=== PATIENT | male | born 1985 | race Caucasian/White ===

== ENCOUNTER 2017-10-15 11:29 | Day surgery (SDC) | payer OTHER ==
[~2017-10-15 11:29] MED LIST: Lactated Ringers 1,000 ML IV SCH
[2017-10-15] MEDS ORDERED: Lidocaine 2% 5 ML SDV ONE (11:45)
[2017-10-15] MEDS ORDERED: Midazolam 1 MG/ML 2 ML SDV ONE (11:46)
[2017-10-15] MEDS ORDERED: Propofol 200 MG/20 ML SDV ONE ×3 (11:46→12:53)
--- NOTE | 2017-10-15 12:27 | PCM.PREANE ---
Preanesthetic Assessment - Anesthesia/Transfusion/Family Hx Anesthesia History: Prior Anesthesia Without Reaction Family History of Anesthesia Reaction: No Transfusion History: No Prior Transfusion(s) Intubation History: Unknown - Review of Systems General: No Symptoms Pulmonary: No Symptoms Cardiovascular: No Symptoms Gastrointestinal: Difficulty Swallowing Neurological: No Symptoms Other: Reports: None - Physical Assessment O2 Sat by Pulse Oximetry: 96 Respiratory Rate: 16 Vital Signs: Last Vital Signs Temp 37.1 C 10/15/17 12:07 Pulse 110 H 10/15/17 12:07 Resp 16 10/15/17 12:07 BP 115/79 10/15/17 12:07 Pulse Ox 96 10/15/17 12:07 Height: 1.68 m Weight: 72.575 kg ASA Class: 2 Mental Status: Alert & Oriented x3 Airway Class: Mallampati = 2 Dentition: Reports: Normal Dentition Thyro-Mental Finger Breadths: 2 Mouth Opening Finger Breadths: 2 ROM/Head Extension: Full Lungs: Clear to Auscultation, Normal Respiratory Effort Cardiovascular: Regular Rate, Regular Rhythm - Allergies Allergies/Adverse Reactions: Allergies Allergy/AdvReac Type Severity Reaction Status Date / Time Sulfa (Sulfonamide Allergy Cannot Verified 10/12/17 13:13 Antibiotics) Remember zolpidem [From Ambien] Allergy "I do Verified 10/12/17 13:13 things" - Blood Blood Available: No - Anesthesia Plan Pre-Op Medication Ordered: None - Acknowledgements Anesthesia Type Planned: MAC Pt an Appropriate Candidate for the Planned Anesthesia: Yes Alternatives and Risks of Anesthesia Discussed w Pt/Guardian: Yes Pt/Guardian Understands and Agrees with Anesthesia Plan: Yes PreAnesthesia Questionnaire HEENT History: Reports: None Cardiovascular History: Reports: Other (See Below) (h/o HTN and high cholesterol , present status unknown) Respiratory History: Reports: Sleep Apnea (does not use CPAP mashine) Gastrointestinal History: Reports: GERD, Other (See Below) Other Gastrointestinal History: dysphagia, fatty liver Musculoskeletal History: Reports: Other (See Below) Other Musculoskeletal History: pain to hands and wrists Psychiatric History: Reports: ADHD, Anxiety, Depression, PTSD - Past Surgical History Head Surgeries/Procedures: Reports: None HEENT Surgical History: Reports: Adenoidectomy, Naso-Sinus Surgery (septoplasty) , Tonsillectomy - SUBSTANCE USE Smoking Status *Q: Never Smoker Recreational Drug Use History: No - HOME MEDS Home Medications: Home Meds Cetirizine HCl [Allergy Relief] 10 mg PO DAILY 10/12/17 [History] Dextroamphetamine Sulfate [Dextroamphetamine Sulfate ER] 10 mg PO DAILY [History] Fluticasone Propionate [Flonase Allergy Relief] 1 spray NASBOTH DAILY 10/12/17 [ History] Pantoprazole Sodium 40 mg PO DAILY 10/12/17 [History] traZODone HCl [Trazodone HCl] 100 mg PO BEDTIME 10/12/17 [History] - CURRENT (IN HOUSE) MEDS Current Meds: Current Medications Lactated Ringer's (Ringers, Lactated) 1,000 mls @ 125 mls/hr IV ASDIRECTED OLI Last Admin: 10/15/17 12:10 Dose: 125 mls/hr Lactated Ringer's (Ringers, Lactated) 1,000 mls @ 125 mls/hr IV ASDIRECTED OLI Discontinued Medications Lidocaine (Xylocaine-Mpf 2%) Confirm Administered Dose 5 ml .ROUTE .STK-MED ONE Stop: 10/15/17 11:46 Midazolam HCl (Versed 1 Mg/Ml) Confirm Administered Dose 2 mg .ROUTE .STK-MED ONE Stop: 10/15/17 11:47 Propofol (Diprivan 20 Ml) Confirm Administered Dose 400 mg .ROUTE .STK-MED ONE Stop: 10/15/17 11:47 Propofol (Diprivan 20 Ml) Confirm Administered Dose 200 mg .ROUTE .STK-MED ONE Stop: 10/15/17 12:19
--- NOTE | 2017-10-15 12:56 | PCM.OPNOTE ---
- General Post-Op/Procedure Note Date of Surgery/Procedure: 10/15/17 Operative Procedure(s): egd w bx Findings: see dict [id number] Pre Op Diagnosis: gastritis Post-Op Diagnosis: Same Anesthesia Technique: Moderate Sedation Primary Surgeon: Robbie Vázquez Pathology: sent Complications: None Condition: Good
--- NOTE | 2017-10-15 13:41 | PCM48HPAN ---
Post Anesthesia Note - EVALUATION WITHIN 48HRS OF ANESTHETIC Vital Signs in Normal Range: Yes Patient Participated in Evaluation: Yes Respiratory Function Stable: Yes Airway Patent: Yes Cardiovascular Function Stable: Yes Hydration Status Stable: Yes Pain Control Satisfactory: Yes Nausea and Vomiting Control Satisfactory: Yes Mental Status Recovered: Yes Resp Rate: 25 - COMMENTS/OBSERVATIONS Free Text/Narrative:: no anesthesia problems
--- NOTE | 2017-10-16 13:07 | OR ---
SURGEON: Robbie Vázquez MD DATE OF PROCEDURE: 10/15/2017 PREOPERATIVE DIAGNOSES: 1. Acid reflux. 2. Gastritis. POSTOPERATIVE DIAGNOSIS: Mild gastritis. PROCEDURE PERFORMED: EGD with biopsies. PROCEDURE IN DETAIL: EGD: The patient was taken to the endoscopy room, and with the DIAMOND POWDER MIXER, Diprivan was administered. A well-lubricated EGD scope was gently inserted through the oropharynx, down the esophagus, passing through the gastroesophageal junction, into the stomach. The mucosa was examined upon the passage. Any etiology will be noted. Once in the stomach, we continued to advance to the distal antrum, passed through the pylorus into the second portion of the duodenum. Again, the mucosa was examined for any abnormality and etiology. The scope was then retrieved back to the stomach and then retroflexed to look at the fundus of the stomach. If a biopsy was indicated, we will biopsy the antrum, body, and gastroesophageal junction. The air will be sucked out while the scope is retrieved to reduce the patient's discomfort. The patient tolerated the procedure well. There were no intraoperative complications. Dr. Vázquez was present through the whole procedure. Prior to surgery, a time-out had been called, the patient identified, procedure identified and antibiotic administered. FINDINGS: 1. The patient is easily sedated with DIAMOND POWDER MIXER and Diprivan. Patient is soundly snoring. 2. The patient's oropharynx and proximal esophagus are free of disease, and distal esophagus at GE junction at 40 shows mild inflammation and salmon- colored change consistent with acid reflux, but is mild. Stomach rugae are normal in appearance. There is no blood, no bile, no food particle, and no ulcer. Antrum is mildly inflamed. Duodenum is grossly normal in appearance but with lymphatic white color. Scope retroflexed to look at the fundus of the stomach, and the patient does not have hiatal hernia. Biopsy done at antrum, body, GE junction at 40 and sucked out the air while scope pulling out. The patient tolerated the procedure well. ARVIN / FRANCISCA /[id number]
== END 2017-10-15 13:45 | disposition home or self-care (01) ==
LOC: MW.SDS 11:29
PROVIDERS: ATTEND Surgery
DX: K29.50 Unspecified chronic gastritis without bleeding (principal); J30.9 Allergic rhinitis, unspecified; M19.90 Unspecified osteoarthritis, unspecified site; F32.9 Major depressive disorder, single episode, unspecified; I10 Essential (primary) hypertension; E78.00 Pure hypercholesterolemia, unspecified; G47.30 Sleep apnea, unspecified; F41.9 Anxiety disorder, unspecified; F90.9 Attention-deficit hyperactivity disorder, unspecified type; F43.10 Post-traumatic stress disorder, unspecified; Z88.8 Allergy status to other drugs, medicaments and biological substances; Z88.2 Allergy status to sulfonamides; Z79.899 Other long term (current) drug therapy; Z90.89 Acquired absence of other organs; Z79.51 Long term (current) use of inhaled steroids
CPT/HCPCS: 43239; J2250; J7120; 00731; 88305; 88312; J2704

== ENCOUNTER 2019-09-16 07:10 | Day surgery (SDC) | payer OTHER ==
[~2019-09-16 07:10] MED LIST changes: +Glycopyrrolate 0.2 MG/ML SDV ONE; +Lidocaine 2% 5 ML SDV ONE; +Midazolam 1 MG/ML 2 ML SDV ONE; +Propofol 200 MG/20 ML SDV ONE
--- NOTE | 2019-09-16 07:52 | PCM.PREANE ---
Preanesthetic Assessment - Anesthesia/Transfusion/Family Hx Anesthesia History: Prior Anesthesia Without Reaction Family History of Anesthesia Reaction: No Transfusion History: No Prior Transfusion(s) Intubation History: Unknown - Review of Systems General: No Symptoms Pulmonary: Other (TEAGAN, has machine from [employer], [employer] will not provide supplies- tubing, etc without a new Rx) - Physical Assessment NPO Status Date: 09/15/19 Vital Signs: Last Vital Signs Temp 97.3 F 09/16/19 07:23 Pulse 88 09/16/19 07:23 Resp 16 09/16/19 07:23 BP 136/98 H 09/16/19 07:23 Pulse Ox 96 09/16/19 07:23 Height: 5 ft 6 in Weight: 75.75 kg ASA Class: 2 Mental Status: Alert & Oriented x3 Airway Class: Mallampati = 2 Dentition: Reports: Normal Dentition ROM/Head Extension: Full Lungs: Clear to Auscultation, Normal Respiratory Effort Cardiovascular: Regular Rate, Regular Rhythm - Allergies Allergies/Adverse Reactions: Allergies Allergy/AdvReac Type Severity Reaction Status Date / Time Sulfa (Sulfonamide Allergy Cannot Verified 09/16/19 07:28 Antibiotics) Remember zolpidem [From Ambien] Allergy "I do Verified 09/16/19 07:28 things" - Blood Blood Available: No - Anesthesia Plan Pre-Op Medication Ordered: None - Acknowledgements Anesthesia Type Planned: General Anesthesia Pt an Appropriate Candidate for the Planned Anesthesia: Yes Alternatives and Risks of Anesthesia Discussed w Pt/Guardian: Yes Pt/Guardian Understands and Agrees with Anesthesia Plan: Yes Additional Comments: PMH: full bears, dysphagia, gerd, TEAGAN< anx/dep, PTSD, ADHD PLAN: tiva PreAnesthesia Questionnaire HEENT History: Reports: Other (See Below) Other HEENT History: "double vision" Cardiovascular History: Reports: High Cholesterol, Hypertension Respiratory History: Reports: Sleep Apnea, Other (See Below) Other Respiratory History: does not use CPAP (due to inability to get replacement parts [facility]) Gastrointestinal History: Reports: GERD, Other (See Below) Other Gastrointestinal History: dysphagia, fatty liver Genitourinary History: Reports: None Musculoskeletal History: Reports: Other (See Below) Other Musculoskeletal History: pain to hands and wrists Neurological History: Reports: None Psychiatric History: Reports: ADHD, Anxiety, Depression, PTSD Endocrine/Metabolic History: Reports: None Hematologic History: Reports: None Immunologic History: Reports: None Oncologic (Cancer) History: Reports: None Dermatologic History: Reports: None - Past Surgical History Head Surgeries/Procedures: Reports: None HEENT Surgical History: Reports: Adenoidectomy, Naso-Sinus Surgery, Tonsillectomy Cardiovascular Surgical History: Reports: None Respiratory Surgical History: Reports: None GI Surgical History: Reports: EGD Male Surgical History: Reports: None Endocrine Surgical History: Reports: None Neurological Surgical History: Reports: None Oncologic Surgical History: Reports: None Dermatological Surgical History: Reports: None - SUBSTANCE USE Smoking Status *Q: Never Smoker - HOME MEDS Home Medications: Home Meds Cetirizine HCl [Allergy Relief] 10 mg PO DAILY 10/12/17 [History] Fluticasone Propionate [Flonase Allergy Relief] 1 spray NASBOTH DAILY 10/12/17 [ History] Pantoprazole Sodium 40 mg PO BID 10/12/17 [History] traZODone HCl [Trazodone HCl] 0.5 tab PO BEDTIME 10/12/17 [History] Mirtazapine 30 mg PO BEDTIME 09/13/19 [History] Modafinil [Provigil] 300 mg PO DAILY 09/13/19 [History] - CURRENT (IN HOUSE) MEDS Current Meds: Current Medications Lactated Ringer's (Ringers, Lactated) 1,000 mls @ 125 mls/hr IV ASDIRECTED OLI Last Admin: 09/16/19 07:30 Dose: 125 mls/hr Discontinued Medications Glycopyrrolate (Robinul) Confirm Administered Dose 0.2 mg .ROUTE .STK-MED ONE Stop: 09/16/19 07:11 Lidocaine (Xylocaine-Mpf 2%) Confirm Administered Dose 5 ml .ROUTE .STK-MED ONE Stop: 09/16/19 07:11 Midazolam HCl (Versed 1 Mg/Ml) Confirm Administered Dose 2 mg .ROUTE .STK-MED ONE Stop: 09/16/19 07:11 Propofol (Diprivan 20 Ml) Confirm Administered Dose 200 mg .ROUTE .STK-MED ONE Stop: 09/16/19 07:11
--- NOTE | 2019-09-16 09:03 | PCM.OPNOTE ---
- General Post-Op/Procedure Note Date of Surgery/Procedure: 09/16/19 Operative Procedure(s): egd w bx Findings: see [id number] Pre Op Diagnosis: dysphagia and gerd Post-Op Diagnosis: Same Anesthesia Technique: Moderate Sedation Primary Surgeon: Robbie Vázquez Pathology: egd bx Complications: None Condition: Good
--- NOTE | 2019-09-16 10:53 | OR ---
SURGEON: Robbie Vzáquez MD DATE OF PROCEDURE: 09/16/2019 PREOPERATIVE DIAGNOSES: Dysphagia and recurrent gastroesophageal reflux disease. POSTOPERATIVE DIAGNOSES: Dysphagia and recurrent gastroesophageal reflux disease. PROCEDURE PERFORMED: Esophagogastroduodenoscopy. DESCRIPTION OF PROCEDURE: EGD: The patient was taken to the endoscopy room, and with the SCRAP WORKER, Diprivan was administered. A well-lubricated EGD scope was gently inserted through the oropharynx, down the esophagus, passing through the gastroesophageal junction, into the stomach. The mucosa was examined upon the passage. Any etiology will be noted. Once in the stomach, we continued to advance to the distal antrum, passed through the pylorus into the second portion of the duodenum. Again, the mucosa was examined for any abnormality and etiology. The scope was then retrieved back to the stomach and then retroflexed to look at the fundus of the stomach. If a biopsy was indicated, we will biopsy the antrum, body, and gastroesophageal junction. The air will be sucked out while the scope is retrieved to reduce the patient's discomfort. The patient tolerated the procedure well. There were no intraoperative complications. Dr. Vázquez was present through the whole procedure. Prior to surgery, a time-out had been called, the patient identified, procedure identified and antibiotic administered. FINDINGS: 1. The patient is easily sedated and soundly snoring with SCRAP WORKER and Diprivan. 2. Oropharynx and proximal esophagus are free of disease, stricture, inflammation. Distal esophagus at GE junction at 40 shows very minimal salmon-colored change, suggests mild acid reflux. Rugae are normal in appearance. Antrum is normal in appearance. Duodenum is grossly normal. Retroflexed look at the fundus of the stomach, there is no hiatal hernia. Biopsy done at antrum, body, GE junction at 40 and sucked out the gas while scope pulling out. During the whole investigation, there is no blood, ulcer, bile, or food particle observed. There is no stricture throughout the whole esophagus. In particular, the patient complained as no stricture or inflammation. ARVIN / FRANCISCA /[id number]
--- NOTE | 2019-09-16 12:23 | PCM.POSTAN ---
POST ANESTHESIA ASSESSMENT - MENTAL STATUS Mental Status: Alert, Oriented - VITAL SIGNS Vital Signs: Last Vital Signs Temp 97.3 F 09/16/19 08:57 Pulse 82 09/16/19 09:15 Resp 14 09/16/19 09:15 BP 140/90 09/16/19 09:15 Pulse Ox 97 09/16/19 09:15 - RESPIRATORY Respiratory Status: Respiratory Rate WNL, Airway Patent, O2 Saturation Stable - CARDIOVASCULAR CV Status: Pulse Rate WNL, Blood Pressure Stable - GASTROINTESTINAL GI Status: No Symptoms - POST OP HYDRATION Hydration Status: Adequate & Stable
--- NOTE | 2019-09-16 12:24 | PCM48HPAN ---
Post Anesthesia Note - EVALUATION WITHIN 48HRS OF ANESTHETIC Vital Signs in Normal Range: Yes Patient Participated in Evaluation: Yes Respiratory Function Stable: Yes Airway Patent: Yes Cardiovascular Function Stable: Yes Hydration Status Stable: Yes Pain Control Satisfactory: Yes Nausea and Vomiting Control Satisfactory: Yes Mental Status Recovered: Yes Vital Signs: Last Vital Signs Temp 97.3 F 09/16/19 08:57 Pulse 82 09/16/19 09:15 Resp 14 09/16/19 09:15 BP 140/90 09/16/19 09:15 Pulse Ox 97 09/16/19 09:15
== END 2019-09-16 09:38 | disposition home or self-care (01) ==
LOC: MW.SDS 07:10
PROVIDERS: ATTEND Surgery
DX: K21.9 Gastro-esophageal reflux disease without esophagitis (principal); I10 Essential (primary) hypertension; E78.00 Pure hypercholesterolemia, unspecified; F32.9 Major depressive disorder, single episode, unspecified; E78.5 Hyperlipidemia, unspecified; Z88.2 Allergy status to sulfonamides; Z88.8 Allergy status to other drugs, medicaments and biological substances; Z98.890 Other specified postprocedural states; Z87.19 Personal history of other diseases of the digestive system; Z79.899 Other long term (current) drug therapy
CPT/HCPCS: 43235; J2001; J2250; J2704; J3490; J7120

== ENCOUNTER 2021-10-01 18:49 | Emergency (ER) | payer OTHER ==
[2021-10-01] MEDS ORDERED: Sodium Chloride 0.9% 10 ML Syringe FLUSH PRN (19:23)
[2021-10-01] MEDS ORDERED: Sodium Chloride 0.9% 2.5 ML Syringe FLUSH PRN (19:23)
[2021-10-01] MEDS ORDERED: Sodium Chloride 0.9% 1,000 ML IV ONE (19:25)
[2021-10-01 19:53] LABS: BLOOD UREA NITROGEN,BUN 16 mg/dL (7.0-18.0); CARBON DIOXIDE,CO2 24.2 mmol/L (21.0-32.0); CHLORIDE,CL 101 mmol/L (98-107); ESTIMATED GFR > 60.0 ml/min; GLUCOSE RANDOM 104 mg/dL (74-106); POTASSIUM,K 3.6 mmol/L (3.5-5.1); SODIUM,NA 138 mmol/L (136-148)
[2021-10-01] MEDS ORDERED: Iopamidol 755 MG/ML 500 ML Multipack Bottle IVPUSH STA (21:16)
== END 2021-10-01 22:33 | disposition home or self-care (01) ==
LOC: MW.ED 18:49
DX: R00.0 Tachycardia, unspecified (principal); I10 Essential (primary) hypertension; K21.9 Gastro-esophageal reflux disease without esophagitis; F32.A Depression, unspecified; F41.9 Anxiety disorder, unspecified; Z88.2 Allergy status to sulfonamides; Z88.8 Allergy status to other drugs, medicaments and biological substances; Z79.899 Other long term (current) drug therapy; Z20.822 Contact with and (suspected) exposure to COVID-19
CPT/HCPCS: 36415; 71045; 71275; 80053; 81003; 83735; 84443; 84484; 85025; 85379; 87635; 93005; 99285; J7030; Q9967; 93010; 99284; J3490; U0002

== ENCOUNTER 2022-01-22 06:28 | Observation (INO) | payer OTHER ==
[2022-01-22] MEDS ORDERED: Ondansetron 4 MG/2 ML SDV IVPUSH ONE (06:51)
[2022-01-22] MEDS ORDERED: Lactated Ringers 1,000 ML IV STA (06:51)
[2022-01-22] MEDS ORDERED: fentaNYL 50 MCG/ML SDV IVPUSH ONE ×2 (06:51→10:18)
[2022-01-22 07:20] LABS: CARBON DIOXIDE,CO2 26.1 mmol/L (21.0-32.0); POTASSIUM,K 3.7 mmol/L (3.5-5.1)
[2022-01-22] MEDS ORDERED: Iopamidol 755 MG/ML 500 ML Multipack Bottle IVPUSH STA (07:54)
[2022-01-22] MEDS ORDERED: Piperacillin/Tazobactam 3.375 GM in Sodium Chloride 0.9% 50 ML IV ONE (09:15)
[2022-01-22] MEDS ORDERED: Ertapenem 1 GM in Sodium Chloride 0.9% 50 ML IV ONE (09:43)
[2022-01-22] MEDS ORDERED: Ondansetron 4 MG/2 ML SDV ONE ×2 (10:23)
[2022-01-22] MEDS ORDERED: fentaNYL 100 MCG/2 ML SDV ONE ×2 (10:23→12:58)
[2022-01-22] MEDS ORDERED: Scopolamine 1.5 MG Transdermal Patch ONE (10:53)
[2022-01-22] MEDS ORDERED: fentaNYL 50 MCG/ML SDV IVPUSH PRN (10:59)
[2022-01-22] MEDS ORDERED: Morphine 4 MG/ML VIAL IVPUSH PRN (10:59)
[2022-01-22] MEDS ORDERED: Ondansetron 4 MG/2 ML SDV IVPUSH PRN ×2 (10:59→15:02)
[2022-01-22] MEDS ORDERED: Metoclopramide 10 MG/2 ML SDV IVPUSH PRN (10:59)
[2022-01-22] MEDS ORDERED: Naloxone 0.4 MG/ML SDV IVPUSH PRN (10:59)
[2022-01-22] MEDS ORDERED: Albuterol 0.083% 2.5 MG/3 ML Neb Soln NEB PRN (10:59)
[2022-01-22] MEDS ORDERED: HYDROmorphone 1 MG/ML Syringe IVPUSH PRN ×2 (10:59→15:02)
[2022-01-22] MEDS ORDERED: Ropivacaine 0.5% 5 MG/ML 30 ML SDV ONE (11:55)
[2022-01-22] MEDS ORDERED: Octyl 2-Cyanoacrylate 1 Tube ONE (12:13)
[2022-01-22] MEDS ORDERED: Bupivacaine 0.5% 30 ML SDV ONE (12:13)
[2022-01-22] MEDS ORDERED: Propofol 200 MG/20 ML SDV ONE (12:58)
[2022-01-22] MEDS ORDERED: Lidocaine 2% 5 ML SDV ONE (12:59)
[2022-01-22] MEDS ORDERED: Rocuronium 100 MG/10 ML MDV ONE (12:59)
[2022-01-22] MEDS ORDERED: Dexamethasone 4 MG/ML 5 ML MDV ONE (14:29)
[2022-01-22] MEDS ORDERED: Ketorolac 30 MG/ML SDV ONE (14:31)
[2022-01-22] MEDS ORDERED: Sugammadex Sodium 200 MG/2 ML VIAL ONE (14:31)
[2022-01-22] MEDS ORDERED: ceFAZolin 2 GM in Premix Bag 1 BAG IV SCH (15:15)
[2022-01-22] MEDS ORDERED: Meperidine PF 25 MG/ML SDV IVPUSH ONE (15:31)
[2022-01-22] MEDS ORDERED: Meperidine PF 25 MG/ML SDV ONE (15:36)
[2022-01-22] MEDS: Pantoprazole 40 MG Tab.CR PO SCH (17:33)
[2022-01-22] MEDS: ceFAZolin 2 GM in Premix Bag 1 BAG IV SCH (17:34)
[2022-01-23] MEDS: ceFAZolin 2 GM in Premix Bag 1 BAG IV SCH (00:24)
[2022-01-23] MEDS: Acetaminophen/HYDROcodone 325-5 MG Tab PO PRN ×2 (00:31→09:12)
[2022-01-23] MEDS: Pantoprazole 40 MG Tab.CR PO SCH (06:30)
[2022-01-23] MEDS ORDERED: Modafinil 100 MG Tab PO SCH (09:00)
[2022-01-23] MEDS ORDERED: Lisinopril 10 MG Tab PO SCH (09:00)
== END 2022-01-23 12:30 | disposition home or self-care (01) ==
LOC: MW.ED 06:28 → MW.SDS 10:13 → MW.MS 11:31
PROVIDERS: ADMIT Surgery; ATTEND Surgery
DX: K35.30 Acute appendicitis with localized peritonitis, without perforation or gangrene (principal); K21.9 Gastro-esophageal reflux disease without esophagitis; G47.00 Insomnia, unspecified; E78.00 Pure hypercholesterolemia, unspecified; I10 Essential (primary) hypertension; F41.9 Anxiety disorder, unspecified; F32.A Depression, unspecified; Z01.812 Encounter for preprocedural laboratory examination; Z20.822 Contact with and (suspected) exposure to COVID-19; Z98.890 Other specified postprocedural states; Z79.899 Other long term (current) drug therapy; Z88.8 Allergy status to other drugs, medicaments and biological substances; Z88.2 Allergy status to sulfonamides
CPT/HCPCS: 36415; 44970; 74177; 80053; 83605; 83690; 85025; 85610; 87040; 87635; 96365; 96367; 96375; 96376; 99285; A9270; G0378; J0131; J0690; J1100; J1170; J1335; J1885; J2175; J2370; J2405; J2704; J2795; J3010; J3490; J7030; J7120; Q9967; 00840; 64488; U0002

== ENCOUNTER 2022-01-25 23:28 | Emergency (ER) | payer OTHER ==
[2022-01-26] MEDS ORDERED: Sodium Chloride 0.9% 2.5 ML Syringe FLUSH PRN (02:42)
[2022-01-26] MEDS ORDERED: Sodium Chloride 0.9% 10 ML Syringe FLUSH PRN (02:42)
[2022-01-26 03:39] LABS: BLOOD UREA NITROGEN,BUN 10 mg/dL (7.0-18.0); CARBON DIOXIDE,CO2 26.7 mmol/L (21.0-32.0); CHLORIDE,CL 102 mmol/L (98-107); GLUCOSE RANDOM 109 mg/dL (74-106); POTASSIUM,K 3.5 mmol/L (3.5-5.1); SODIUM,NA 138 mmol/L (136-148)
[2022-01-26 03:46] LABS: ESTIMATED GFR 118 mL/min (>60)
[2022-01-26] MEDS ORDERED: Iopamidol 755 MG/ML 500 ML Multipack Bottle IVPUSH ONE (04:14)
== END 2022-01-26 06:08 | disposition home or self-care (01) ==
LOC: MW.ED 23:28
DX: R14.0 Abdominal distension (gaseous) (principal); R06.02 Shortness of breath; I10 Essential (primary) hypertension; K21.9 Gastro-esophageal reflux disease without esophagitis; Z88.2 Allergy status to sulfonamides; Z88.8 Allergy status to other drugs, medicaments and biological substances; Z79.899 Other long term (current) drug therapy
CPT/HCPCS: 36415; 74177; 80053; 85025; 99285; Q9967; 99284

== ENCOUNTER 2023-04-27 13:03 | Emergency (ER) | payer OTHER | END 2023-04-27 14:58 | disposition home or self-care (01) | LOC: MW.ED 13:03 | DX: R07.89 Other chest pain (principal); K21.9 Gastro-esophageal reflux disease without esophagitis; I10 Essential (primary) hypertension; Z88.2 Allergy status to sulfonamides; Z88.8 Allergy status to other drugs, medicaments and biological substances; Z79.899 Other long term (current) drug therapy; W01.0XXA Fall on same level from slipping, tripping and stumbling without subsequent striking against object, initial encounter | CPT/HCPCS: 71101-26-RT; 71101-RT; 99283; 99284 ==

== ENCOUNTER 2023-05-01 08:38 | Day surgery (SDC) | payer OTHER ==
[~2023-05-01 08:38] MED LIST changes: -Glycopyrrolate 0.2 MG/ML SDV ONE; -Lidocaine 2% 5 ML SDV ONE; -Midazolam 1 MG/ML 2 ML SDV ONE; -Propofol 200 MG/20 ML SDV ONE; +propofoL 50 ML ONE
[2023-05-01] MEDS ORDERED: Dexmedetomidine 200 MCG/2 ML SDV IV ONE (08:39)
[2023-05-01] MEDS ORDERED: Phenylephrine HCl 0.5 MG/5 ML AMP IV ONE (08:39)
== END 2023-05-01 11:15 | disposition home or self-care (01) ==
LOC: MW.SDS 08:38
PROVIDERS: ATTEND Surgery
DX: K21.00 Gastro-esophageal reflux disease with esophagitis, without bleeding (principal); K31.7 Polyp of stomach and duodenum; K22.89 Other specified disease of esophagus; K31.89 Other diseases of stomach and duodenum; K63.5 Polyp of colon; K64.8 Other hemorrhoids; F41.9 Anxiety disorder, unspecified; F32.A Depression, unspecified; I10 Essential (primary) hypertension; E78.00 Pure hypercholesterolemia, unspecified; G47.30 Sleep apnea, unspecified; F90.8 Attention-deficit hyperactivity disorder, other type; K42.9 Umbilical hernia without obstruction or gangrene; Z88.8 Allergy status to other drugs, medicaments and biological substances; Z88.2 Allergy status to sulfonamides; Z79.899 Other long term (current) drug therapy; Z98.890 Other specified postprocedural states
CPT/HCPCS: 43239; 45380; 88305; J2371; J2704; J7120; J3490

== ENCOUNTER 2023-07-22 11:10 | Day surgery (SDC) | payer OTHER ==
[~2023-07-22 11:10] MED LIST changes: +Albuterol 0.083% 2.5 MG/3 ML Neb Soln NEB PRN; +HYDROmorphone 1 MG/ML Syringe IVPUSH PRN; -Lactated Ringers 1,000 ML IV SCH; +Metoclopramide 10 MG/2 ML SDV IVPUSH PRN; +Morphine 2 MG/ML SYRINGE IVPUSH PRN; +Naloxone 0.4 MG/ML SDV IVPUSH PRN; +Ondansetron 4 MG/2 ML SDV IVPUSH PRN; +droPERidol 5 MG/2 ML SDV IVPUSH PRN; +fentaNYL 50 MCG/ML SDV IVPUSH PRN; -propofoL 50 ML ONE
[2023-07-22] MEDS ORDERED: fentaNYL 100 MCG/2 ML SDV ONE (11:29)
[2023-07-22] MEDS ORDERED: Bupivacaine 0.5% 30 ML SDV ONE (11:53)
[2023-07-22] MEDS ORDERED: Propofol 200 MG/20 ML SDV ONE (12:01)
[2023-07-22] MEDS ORDERED: dexmedeTOMIDine HCl 200 MCG/2 ML SDV ONE (12:02)
[2023-07-22] MEDS ORDERED: Water For Injection, Sterile 20 ML ONE (12:02)
[2023-07-22] MEDS ORDERED: Rocuronium Bromide 50 MG/5 ML Syringe ONE (12:05)
[2023-07-22] MEDS ORDERED: Ropivacaine 0.5% 5 MG/ML 30 ML SDV ONE (12:11)
[2023-07-22] MEDS ORDERED: Bupivacaine 0.25% 30 ML SDV ONE (12:11)
[2023-07-22] MEDS ORDERED: Lactated Ringers 1,000 ML IV SCH (12:30)
[2023-07-22] MEDS ORDERED: Magnesium Sulfate (4.06 MEQ/ML) 5 GM/10 ML SDV ONE (12:41)
[2023-07-22] MEDS ORDERED: ceFAZolin 2 GM Vial ONE (12:43)
[2023-07-22] MEDS ORDERED: Dexamethasone 4 MG/ML 5 ML MDV ONE (12:54)
[2023-07-22] MEDS ORDERED: Ondansetron 4 MG/2 ML SDV ONE (12:54)
[2023-07-22] MEDS ORDERED: Phenylephrine HCl 0.5 MG/5 ML AMP ONE (13:01)
[2023-07-22] MEDS ORDERED: Ketorolac 30 MG/ML SDV ONE (13:33)
[2023-07-22] MEDS ORDERED: Sugammadex Sodium 200 MG/2 ML VIAL ONE (13:33)
[2023-07-22] MEDS ORDERED: ePHEDrine 50 MG/ML SDV ONE (13:37)
== END 2023-07-22 15:28 | disposition home or self-care (01) ==
LOC: MW.SDS 11:10
PROVIDERS: ATTEND Surgery
DX: K43.0 Incisional hernia with obstruction, without gangrene (principal); K42.9 Umbilical hernia without obstruction or gangrene; I10 Essential (primary) hypertension; E78.00 Pure hypercholesterolemia, unspecified; F32.A Depression, unspecified; F41.9 Anxiety disorder, unspecified; K21.9 Gastro-esophageal reflux disease without esophagitis; Z79.899 Other long term (current) drug therapy; Z88.2 Allergy status to sulfonamides
CPT/HCPCS: 49592; 64486; 64488; J0131; J0665; J0690; J1100; J1885; J2371; J2405; J2704; J2795; J3010; J3475; J3490; J7120